=== PATIENT | male | born 1995 | race Caucasian/White ===

== ENCOUNTER → 2022-11-24 18:33 | Outpatient (CLI) | payer OTHER, SELFPAY ==
[2022-11-24 19:26] LABS: Alanine Aminotransferase 63 U/L (12-78); Albumin Level 4.5 g/dl (3.5-5.0); Albumin/Globulin Ratio 1.4 (1.1-1.8); Alkaline Phosphatase 117 U/L (38-126); Anion Gap 13.7 mEq/L (5-15); Aspartate Amino Transferase 51 U/L (17-59); Basophils # 0.1 K/mm3 (0-0.2); Basophils % 0.8 % (0.1-2.0); Blood Urea Nitrogen 10 mg/dl (9-20); Calcium 9.1 mg/dl (8.4-10.2); Carbon Dioxide 24 mmol/L (22.0-30.0); Chloride 107 mmol/L (98-107); Cholesterol 275 mg/dl (140-200); Eosinophils # 0.2 K/mm3 (0.0-0.4); Eosinophils % 2.7 % (0.1-12.0); Estimated Glomerular Filt Rate 114 ml/min (>60); GFR (African American) 138 ML/MIN (>60); Globulin 3.3 g/dL (1.3-3.2); Glucose 93 mg/dl (74-100); HDL Cholesterol 25 mg/dl (40-60); Hematocrit 49.8 % (42.0-52.0); Hemoglobin 16.4 g/dL (14.1-18.0); Lymphocytes # 2.2 K/mm3 (0.7-4.5); Lymphocytes % 28.9 % (10-50); Mean Corpuscular Hemoglobin 29.8 pg (27.0-31.2); Mean Corpuscular Volume 90.3 fl (80-94); Mean Platelet Volume 8.6 fl (7.4-10.4); Monocytes # 0.6 K/mm3 (0.1-1.0); Monocytes % 7.3 % (1.7-9.3); Neutrophils # 4.7 K/mm3 (1.8-7.8); Neutrophils % 60.4 % (37.0-80.0); Platelet Count 363 K/mm3 (142-424); Potassium 3.7 mmoL/L (3.5-5.1); Red Blood Count 5.51 M/mm3 (4.60-6.20); Red Cell Distribution Width 13.4 % (11.5-17.5); Sodium 141 mmol/L (136-145); Total Protein,Serum 7.8 g/dl (6.3-8.2); Triglycerides 332 mg/dl (30-150); VLDL Cholesterol 66 mg/dL (0-40); White Blood Count 7.7 K/mm3 (4.8-10.8)
[2022-11-24 19:37] LABS: Direct LDL Cholesterol 124.93 mg/dL (100-129)
[2022-11-24 19:52] LABS: 25-OH Vitamin D, Total 31.7 ng/mL (30-100)
[2022-11-24 19:56] LABS: Thyroid Stimulating Hormone 1.89 uIU/mL (0.465-4.68)
[2022-11-24 20:15] LABS: Vitamin B12 853 pg/mL (239-931)
== END ==
PROVIDERS: PCP Nurse Practitioner Family; Visit Provider Nurse Practitioner Family
DX: Z00.00 Encounter for general adult medical examination without abnormal findings (principal); F41.9 Anxiety disorder, unspecified; F32.9 Major depressive disorder, single episode, unspecified; Z79.899 Other long term (current) drug therapy; Z51.81 Encounter for therapeutic drug level monitoring; E66.9 Obesity, unspecified; Z68.38 Body mass index [BMI] 38.0-38.9, adult
CPT/HCPCS: 80053; 80061; 82306; 82607; 83036; 84443; 85025